=== PATIENT | male | born 1990 | race Caucasian/White ===

== ENCOUNTER 2016-09-16 08:09 | Emergency (ER) | payer SELFPAY ==
--- NOTE | 2016-09-19 12:33 | ER ---
ADMIT: 09/16/2016 RM/LOC: ER [facility] MR#: [id number] [facility] [address] M[address]TO [address] [place] [address] Emergency Room Report SEX: M AGE: 26 : 1990 DATE: 09/16/2016 ADDENDUM: This 26-year-old white male coming in with actually bronchitis-like symptoms, but also coughing up a little productive sputum that is kind of greenish in color. He is a smoker. At this time, he is also out of his medication for high blood pressure, cholesterol, and diabetes. I put him on Cipro 500 b.i.d. x7 days. That was after we checked him for flu which was negative. His glucose is 225, so he has been out of his metformin, so re- wrote him for metformin 1000 mg p.o. daily with main meal. His Zocor for his cholesterol 40 mg p.o. daily #30 and then also for a little hypertension lisinopril 5 mg p.o. daily #30. He is to follow up with supervisor home economics doc who would be Dr. Osei in 1 to 2 weeks. CONDITION ON DISCHARGE: Fair. Nazario Maher MD/ chepe JOB #: [id number] CC: Nazario Maher MD, Attending Physician Viola Osei MD, Family Physician
== END 2016-09-16 10:00 | disposition home or self-care (01) ==
LOC: ER 08:09
DX: J20.9 Acute bronchitis, unspecified (principal); E11.9 Type 2 diabetes mellitus without complications; E78.00 Pure hypercholesterolemia, unspecified; I10 Essential (primary) hypertension; F17.210 Nicotine dependence, cigarettes, uncomplicated; Z88.0 Allergy status to penicillin

== ENCOUNTER 2016-11-12 23:35 | Emergency (ER) | payer SELFPAY ==
--- NOTE | 2016-11-13 19:05 | ER ---
ADMIT: 11/12/2016 RM/LOC: ER [facility] MR#: [id number] [address] [address] [place]ARTIN [address]TO [address] [address] Emergency Room Report SEX: M AGE: 26 : 1990 DATE: 11/12/2016 HISTORY OF PRESENT ILLNESS: The patient is a 26-year-old male with chief complaint of right knee pain. The patient states today he was working when he stepped out of the truck, he believed that he could have twisted the right knee and since then has severe pain a few hours before coming to the ER. The patient was limping on the right knee. The patient states since 2013, he has multiple episodes of similar twisting and similar pain in the same knee and has been followed up by the Orthopedic Surgery. The patient had x-rays before, which were negative for any fractures. The patient denies any MRIs. The patient states that when he walked out of the truck, the right knee twisted and he felt like a cracking sound unlike the right knee gave away, but he denies any head trauma or loss of consciousness. The patient denies any numbness or tingling. Pain is sharp and increases with range of motion of right knee. PHYSICAL EXAMINATION: GENERAL: The patient was sitting in the bed, in no obvious pain or distress as long as he keeps the right knee immobilized. There were no obvious swelling in the right knee. HEAD and NECK: Negative. CHEST: Negative. ABDOMEN: Negative. MUSCULOSKELETAL: In the right knee, there is no . The patient had moderate tenderness on palpation of the patellar area. There was no erythema in the area. Anterior drawer test was negative. Lateral and medial stress test was also negative. Meniscus exam was not doable during because of the pain. X-ray of the right knee did not show any fractures or dislocations. The patient had normal peripheral pulses and capillary filling and normal motor and sensory grossly. The patient received Percocet for pain control, right knee was Jesus wrapped. The patient had knee immobilizer at home. The patient was offered crutches, but he refused to have crutches. The patient was discharged to home with a prescription for Percocet, advised to use a knee immobilizer, cold compress for today followed by next day warm compress, and follow up with the primary care physician for possible referral to orthopedic surgeon per their discretion. The patient understood the plan and agreed with it and was discharged to home. Jean Santizo MD/ chepe JOB #: [id number] CC: Jean Santizo MD, Attending Physician Viola Osei MD, Family Physician
== END 2016-11-13 01:20 | disposition home or self-care (01) ==
LOC: ER 23:35
DX: M25.561 Pain in right knee (principal); E11.9 Type 2 diabetes mellitus without complications; F17.200 Nicotine dependence, unspecified, uncomplicated